=== PATIENT | male | born 2000 | race Caucasian/White ===

== ENCOUNTER 2024-10-05 12:57 | Emergency (ER) | payer OTHER ==
[2024-10-05] MEDS ORDERED: LORazepam 2 MG/ML VIAL ONE ×2 (15:25→18:01)
[2024-10-05 15:46] LABS: Absolute Eosinophils 0.2 K/uL (0-0.5); Absolute Lymphocytes (CBC) 3.5 K/uL (0.7-4.9); Absolute Monocytes 0.9 K/uL (0.1-1.3); Basophils % 0.5 % (0-1.3); Eosinophils % 1.7 % (0-4.4); Hematocrit 43.9 % (39.6-49.0); Hemoglobin 15.6 g/dL (13.6-17.9); Lymphocytes % 36.6 % (15.3-44.8); MCH 31.7 pg (27.0-35.0); MCHC 35.5 g/dL (32.0-36.0); MCV 89.3 fL (80-100); MPV 7.8 fL (7.6-11.3); Neutrophils % 52.2 % (41.7-73.7); Nucleated Red Blood Cells % 0.1 % (0-0); Platelets 344 thou/uL (152-406); RBC Red Blood Cell Count 4.92 M/uL (4.33-5.43); Red Cell Distribution Width 12.9 % (12.1-15.2)
[2024-10-05 15:49] LABS: Specific Gravity < 1.005 (1.005-1.030); Sqamous Epithelial None Seen /HPF (None Seen); Urine Bacteria None Seen /HPF (<20); Urine Bilirubin NEGATIVE (Negative); Urine Blood Negative (Negative); Urine Clarity Turbid (Clear); Urine Color Colorless (Yellow); Urine Culture Reflex Order NOT NEEDED; Urine Glucose NEGATIVE (Negative); Urine Ketones NEGATIVE (Negative); Urine Microscopic Reflex YN ORDER UMIC; Urine Nitrite NEGATIVE (Negative); Urine Protein 4+ (Over) (Negative); Urine RBC <5 /HPF (None Seen); Urine Urobilinogen Normal (Normal); Urine WBC <5 /HPF (<5)
[2024-10-05 15:56] LABS: Barbiturates NEGATIVE (NEGATIVE); Benzodiazepines NEGATIVE (NEGATIVE); Cocaine NEGATIVE (NEGATIVE); METHAMPHETAM NEGATIVE (NEGATIVE); Methadone NEGATIVE (NEGATIVE); Opiates NEGATIVE (NEGATIVE); Phencyclidine NEGATIVE (NEGATIVE); THC Cannibis NEGATIVE (NEGATIVE)
[2024-10-05 16:03] LABS: ALT/SGPT 25 U/L (16-61); AST/SGOT 19 U/L (15-37); Albumin 4.3 g/dL (3.4-5.0); Albumin/Globulin Ratio 1.2 (1.1-1.8); Alkaline Phosphatase 76 U/L (45-117); Anion Gap 9.4 mEq/L (5.0-15.0); BUN Blood Urea Nitrogen 8 mg/dL (7-18); Bicarbonate 25 mEq/L (21-32); Bilirubin Direct 0.2 mg/dL (0-0.2); Bilirubin Indirect, Calculated 0.6 mg/dL (0.2-0.8); Bilirubin Total 0.8 mg/dL (0.2-1.0); Globulin 3.6 g/dL (2.3-3.5); Glomerular Filtration Rate 95 ml/min (=/>90); Glucose Level 103 mg/dL (74-106); Potassium 3.4 mEq/L (3.5-5.1); Protein, Total 7.9 g/dL (6.4-8.2); Sodium Level 134 mEq/L (136-145)
[2024-10-05] MEDS ORDERED: NA CHLORIDE 0.9% 1,000 ML ONE ×2 (16:21→18:01)
--- NOTE | 2024-10-05 16:48 | EDPHYS ---
Physician Documentation [facility] Name: Case Mehta Age: 24 yrs Sex: Male : 2000 Arrival Date: 10/05/2024 Time: 12:57 Bed 14 Private MD: ED Physician Elayne Blackburn HPI: 10/05 16:44 This 24 yrs old Male presents to ER via Ambulatory with complaints of Mental Evaluation.kb 16:44 Hey patient is a 24-year-old male with a history of bipolar disorder who presents for kb pain, squeezing and an odd noise to the back of his head that has been ongoing for months but got worse yesterday. States he has not been able to sleep because he is afraid that he is going to . Mother states patient has been very paranoid, not sleeping and she believes he is in psychosis. Mother states patient has been concerned that he has a brain bleed.. Historical: - PMHx: 13:55 Depressive disorder; Bipolar disorder; ko1 - Immunization history:: Adult Immunizations unknown. - Infectious Disease History:: Denies. - Social history:: Smoking status: Patient reports the use of cigarette tobacco products, denies chronic smoking, but will smoke occasionally, Patient uses street drugs, Methamphetamine (Meth). ROS: 16:44 Constitutional: As per HPI kb Exam: 16:44 Head/Face: Normocephalic, atraumatic. ENT: Moist Mucous membranes Cardiovascular: kb Regular rate Respiratory: Respirations even and unlabored. No increased work of breathing. Talking in full sentences Abdomen/GI: Soft, non-tender. No distention Skin: Warm, dry with normal turgor. Normal color. MS/ Extremity: Pulses equal, no cyanosis. Neurovascular intact. Full, normal range of motion. Neuro: Awake and alert, GCS 15, oriented to person, place, time, and situation. 16:44 Constitutional: The patient appears alert, awake, anxious, 17:24 ECG was reviewed by the Attending Physician. kb Vital Signs: 13:53 BP 144 / 78; Pulse 84; Resp 18; Temp 97; Pulse Ox 98% ; ko1 16:17 BP 143 / 98; Pulse 125; Resp 16; Pulse Ox 98% on R/A; jb4 17:45 BP 141 / 77; Pulse 115; Resp 16; Pulse Ox 100% on R/A; jb4 18:08 BP 147 / 81; Pulse 93; Resp 20; Pulse Ox 100% on R/A; jb4 MDM: 13:02 Medical Screening Exam initiated kb 16:45 Differential diagnosis: Acute stress reaction, panic attack, psychosis, paranoia, drug kb dependence, ICH. Data reviewed: vital signs, nurses notes. Consideration of Admission/Observation Escalation of care including admission/observation considered. Patient will be transferred for inpatient psych. Historians other than the Patient: Parent: Mother. ED course: Mother and patient in agreement with transfer for inpatient psychiatric treatment. Patient will go on voluntary basis. 17:44 Counseling: I had a detailed discussion with the patient and/or guardian regarding the kb historical points, exam findings, and any diagnostic results supporting the discharge/admit diagnosis, lab results, radiology results, the need to transfer to another facility, [facility] does not immediately have the required specialist. ED course: Pt accepted for transfer to [facility] without conference. . 10/05 13:21 Order name: Acetaminophen; Complete Time: 16:10 kb 10/05 13:21 Order name: Basic Metabolic Panel; Complete Time: 16:10 kb 10/05 13:21 Order name: CBC with Diff; Complete Time: 15:55 kb 10/05 13:21 Order name: ETOH Level; Complete Time: 15:57 kb 10/05 13:21 Order name: Hepatic Function; Complete Time: 16:10 kb 10/05 13:21 Order name: Salicylate; Complete Time: 16:10 kb 10/05 13:21 Order name: Urinalysis w/ reflexes; Complete Time: 15:55 kb 10/05 13:21 Order name: Urine Drug Screen; Complete Time: 15:57 kb 10/05 16:18 Order name: Depakote; Complete Time: 16:34 kb 10/05 16:15 Order name: CT Head Brain wo Cont; Complete Time: 17:23 jb4 10/05 13:21 Order name: EKG; Complete Time: 13:22 kb 10/05 13:21 Order name: EKG - Nurse/Tech; Complete Time: 15:31 kb 10/05 13:21 Order name: IV Saline Lock; Complete Time: 15:30 kb 10/05 13:21 Order name: Labs collected and sent; Complete Time: 15:31 kb 10/05 13:21 Order name: Suicide Precautions; Complete Time: 15: kb 10/05 13:21 Order name: Suicide Screening ([place]); Complete Time: 15:31 kb EC:24 Rate is 118 beats/min. Rhythm is regular. QRS [place] is Normal. SC interval is normal at kb 130 msec. QRS interval is normal at 90 msec. QT interval is normal at 434 msec. Administered Medications: 15:31 Drug: Ativan IVP 1 mg IVP once Route: IVP; Site: right antecubital; jb4 16:46 Follow up: Response: No adverse reaction; Marked relief of symptoms; Anxiety decreased; jb4 RASS: Alert and Calm (0) 16:26 Drug: NS 0.9% IV 1000 ml IV at 1000 ml once; to be given as a bolus over 60 minutes jb4 Route: IV; Rate: 1000 ml; Site: right antecubital; 17:47 Follow up: Response: No adverse reaction; IV Status: Completed infusion; IV Intake: jb4 1000ml 18:07 Drug: Ativan IVP 1 mg IVP once Route: IVP; Site: right antecubital; jb4 19:10 Follow up: Response: No adverse reaction; Marked relief of symptoms; RASS: Alert and jb4 Calm (0) 18:09 Drug: NS 0.9% IV 1000 ml IV at 1000 ml once; to be given as a bolus over 60 minutes jb4 Route: IV; Rate: 1000 ml; Site: right antecubital; 18:52 Follow up: Response: No adverse reaction; IV Status: Completed infusion; IV Intake: ll1 1000ml Disposition Summary: 10/05/24 16:47 Transfer Ordered Notes: Transfer Location: Psych Facility kb Reason: Higher level of care kb Condition: Stable kb Problem: new kb Symptoms: are unchanged kb Accepting Physician: Dr Pate (10/05/24 20:08) jb4 Diagnosis - Bipolar disorder, unspecified kb - Psychosis kb Forms: - Medication Reconciliation Form kb - SBAR form kb Signatures: Dispatcher [employer] EDFiorella Woodruff, NOEL SANCHEZ-Geovani Kelly RN RN jb4 Eliza Simons RN RN koLori Ayon rv1 Hunter Chairez RN ll1 Corrections: (The following items were deleted from the chart) 16:46 16:44 Navjot patient is a 24-year-old male with a history of bipolar disorder who presents kb for pain, squeezing and an odd noise to the back of his head that has been ongoing for months but got worse yesterday. States he has not been able to sleep because he is afraid that he is going to . Mother states patient has been very paranoid, not sleeping and she believes he is in psychosis.. kb 19:48 16:47 Dr erickson rv1 20:08 19:48 Dr Pate rv1 jb4
--- NOTE | 2024-10-05 16:48 | ER ---
Nurse's Notes [facility] Name: Case Mehta Age: 24 yrs Sex: Male : 2000 Arrival Date: 10/05/2024 Time: 12:57 Bed 14 Private MD: Diagnosis: Bipolar disorder, unspecified;Psychosis Presentation: 10/05 13:53 Chief complaint: Patient states: afraid to sleep, tightness in back of head for months ko1 worse last night. Coronavirus screen: At this time, the client does not indicate any symptoms associated with coronavirus-19. Ebola Screen: No symptoms or risks identified at this time. Initial Sepsis Screen: Does the patient meet any 2 criteria? No. Patient's initial sepsis screen is negative. Does the patient have a suspected source of infection? No. Patient's initial sepsis screen is negative. Risk Assessment: Do you want to hurt yourself or someone else? Patient reports no desire to harm self or others. Onset of symptoms is unknown. 13:53 Method Of Arrival: Ambulatory ko1 13:53 Acuity: EUSEBIO 3 ko1 Triage Assessment: 13:55 General: Appears in no apparent distress. Behavior is anxious. Pain: Complains of pain ko1 in scalp. Historical: - PMHx: 13:55 Depressive disorder; Bipolar disorder; ko1 - Immunization history:: Adult Immunizations unknown. - Infectious Disease History:: Denies. - Social history:: Smoking status: Patient reports the use of cigarette tobacco products, denies chronic smoking, but will smoke occasionally, Patient uses street drugs, Methamphetamine (Meth). Screenin:04 [facility] ED Fall Risk Assessment (Adult) History of falling in the last 3 months, jb4 including since admission No falls in past 3 months (0 pts) Confusion or Disorientation No (0 pts) Intoxicated or Sedated No (0 pts) Impaired Gait No (0 pts) Mobility Assist Device Used No (0 pt) Altered Elimination No (0 pt) Score/Fall Risk Level 0 - 2 = Low Risk Oriented to surroundings, Maintained a safe environment. Abuse screen: Denies threats or abuse. Nutritional screening: No deficits noted. Tuberculosis screening: No symptoms or risk factors identified. Assessment: 15:15 General: Appears in no apparent distress. comfortable, Behavior is cooperative, jb4 anxious, restless. Pain: Denies pain. Neuro: Level of Consciousness is awake, alert, obeys commands, Oriented to person, place, time, situation. Cardiovascular: Patient's skin is warm and dry. Respiratory: Airway is patent Respiratory effort is even, unlabored, Respiratory pattern is regular, symmetrical. Derm: Skin is intact, Skin is pink, warm \T\ dry. Musculoskeletal: Circulation, motion, and sensation intact. Range of motion: intact in all extremities. 16:17 Reassessment: Patient appears in no apparent distress at this time. Patient and/or jb4 family updated on plan of care and expected duration. Pain level reassessed. Patient is alert, oriented x 3, equal unlabored respirations, skin warm/dry/pink. Pt appears much more calm after ativan administration. 18:53 Reassessment: No changes from previously documented assessment. Patient and/or family ll1 updated on plan of care and expected duration. Pain level reassessed. gait steady from restroom. 20:04 Reassessment: Patient appears in no apparent distress at this time. Patient and/or jb4 family updated on plan of care and expected duration. Pain level reassessed. Patient is alert, oriented x 3, equal unlabored respirations, skin warm/dry/pink. Vital Signs: 13:53 BP 144 / 78; Pulse 84; Resp 18; Temp 97; Pulse Ox 98% ; ko1 16:17 BP 143 / 98; Pulse 125; Resp 16; Pulse Ox 98% on R/A; jb4 17:45 BP 141 / 77; Pulse 115; Resp 16; Pulse Ox 100% on R/A; jb4 18:08 BP 147 / 81; Pulse 93; Resp 20; Pulse Ox 100% on R/A; jb4 ED Course: 13:00 Patient arrived in ED. mr 13:02 Fiorella Junior FNP-C is [facility]. kb 13:02 Elayne Blackburn MD is Attending Physician. kb 13:55 Triage completed. ko1 13:55 Arm band placed on right wrist. Patient placed in waiting room, Patient notified of ko1 wait time. 15:32 Acetaminophen Sent. jb4 15:32 Basic Metabolic Panel Sent. jb4 15:32 CBC with Diff Sent. jb4 15:32 ETOH Level Sent. jb4 15:32 Hepatic Function Sent. jb4 15:32 Salicylate Sent. jb4 15:32 Urinalysis w/ reflexes Sent. jb4 15:32 Urine Drug Screen Sent. jb4 17:08 CT Head Brain wo Cont In Process Unspecified. EDMS 17:31 faxed chart to [facility]. bd 19:13 Pt accepted to [facility] by Dr. Pate. rv1 20:04 Patient has correct armband on for positive identification. Bed in low position. Call jb4 light in reach. Side rails up X 1. Provided Education on: need for transfer. 20:04 No provider procedures requiring assistance completed. IV discontinued, intact, jb4 bleeding controlled, No redness/swelling at site. Pressure dressing applied. Administered Medications: 15:31 Drug: Ativan IVP 1 mg IVP once Route: IVP; Site: right antecubital; jb4 16:46 Follow up: Response: No adverse reaction; Marked relief of symptoms; Anxiety decreased; jb4 RASS: Alert and Calm (0) 16:26 Drug: NS 0.9% IV 1000 ml IV at 1000 ml once; to be given as a bolus over 60 minutes jb4 Route: IV; Rate: 1000 ml; Site: right antecubital; 17:47 Follow up: Response: No adverse reaction; IV Status: Completed infusion; IV Intake: jb4 1000ml 18:07 Drug: Ativan IVP 1 mg IVP once Route: IVP; Site: right antecubital; jb4 19:10 Follow up: Response: No adverse reaction; Marked relief of symptoms; RASS: Alert and jb4 Calm (0) 18:09 Drug: NS 0.9% IV 1000 ml IV at 1000 ml once; to be given as a bolus over 60 minutes jb4 Route: IV; Rate: 1000 ml; Site: right antecubital; 18:52 Follow up: Response: No adverse reaction; IV Status: Completed infusion; IV Intake: ll1 1000ml Medication: 20:04 VIS not applicable for this client. jb4 Intake: 17:47 IV: 1000ml; Total: 1000ml. jb4 18:52 IV: 1000ml; Total: 2000ml. ll1 Outcome: 16:47 ER care complete, transfer ordered by MD. erickson 20:04 Transferred by ground EMS to other acute care facility: [facility] [place] [place]. jb4 20:04 Condition: stable 20:04 Discharge instructions given to patient, family, Instructed on the need for transfer, Demonstrated understanding of instructions, 20:08 Patient left the ED. jb4 Signatures: Dispatcher [employer] EDMS Fiorella Junior, GEOPHYSICS SCIENTIST-C GEOPHYSICS SCIENTIST-CkDestiny Barbour, Valorie, Reg Reg mr MakGeovani, RN RN jb4 Hunter Chairez, RN RN ll1 Eliza Simons RN RN ko1 Lori Bro 1 Corrections: (The following items were deleted from the chart) 16:46 16:15 Response: No adverse reaction; Marked relief of symptoms; Anxiety decreased jb4 jb4
--- NOTE | 2024-10-05 17:21 | RAD REPORT ---
EXAM: CT brain without contrast HISTORY: Headache COMPARISON: None TECHNIQUE: Multiple contiguous axial images were obtained and a CT of the brain without contrast.. Sagittal and coronal reconstruction performed. Automated exposure control, adjustment of the mA and/or kV according to patient size, and/or iterative reconstruction. Unless otherwise specified, incidental f indings do not require dedicated imaging follow-up FINDINGS: An intracranial bleed is not seen Ventricles are normal caliber No extra-axial fluid collection noted No significant hypodensity within the brain Fluid within sphenoid sinus. It is almost completely opacified IMPRESSION: No acute intracranial abnormality noted. Fluid within sphenoid sinus probably acute sinusitis If the patient continues to have symptoms to suggest an acute intracranial abnormality then MRI of th e brain would be recommended.
[2024-10-05 20:13] VITALS: TEMP 97
[2024-10-05 20:15] VITALS: O2SAT 100
[2024-10-05 20:16] VITALS: BP 147/81
== END 2024-10-05 20:08 ==
LOC: ER 12:57
DX: F31.9 Bipolar disorder, unspecified (principal); F17.210 Nicotine dependence, cigarettes, uncomplicated
CPT/HCPCS: 96361; 85025; 81001; 80048; 36415; 80076; 80164; 80307; 70450; 96374; 99285; 80143; 80179; 82077; J7030 ×2; 93005